=== PATIENT | female | born 1950 | race Caucasian/White ===

== ENCOUNTER 2019-01-21 02:18 | Outpatient (CLI) | payer MEDICARE, BC, SELFPAY ==
[2019-01-21 10:31] LABS: HCT 40.2 % (36.0-46.0); HGB 13.1 g/dL (12.0-15.5); Mean Corp. HGB Concentration 32.6 g/dL (32.0-36.0); Mean Corpuscular Hemoglobin 30.2 pg (27.0-33.0); Mean Corpuscular Volume 92.6 fL (80-95); Mean Platelet Volume 10.1 fL (8.0-11.0); Platelet Count 272 x1000/uL (130-400); RBC 4.34 m/cumm (4.00-5.20); RBC Distribution Width 12.8 % (11.7-14.6)
[2019-01-21 10:45] LABS: ALT 28 U/L (12-78); AST 21 U/L (15-37); Albumin 3.6 g/dL (3.4-5.0); Alkaline Phosphatase 66 U/L (46-116); BUN 20 mg/dL (7-18); Bilirubin, Total 0.4 mg/dL (0.2-1.0); CREATININE 0.81 mg/dL (0.55-1.02); Calcium 8.7 mg/dL (8.5-10.1); Chloride 106 mmol/L (98-107); Glucose 86 mg/dL (70-100); Potassium 4.8 mmol/L (3.5-5.1); Sodium 141 mmol/L (136-145); Total Protein 6.5 g/dL (6.4-8.2)
== END 2019-01-21 02:38 ==
PROVIDERS: PCP Family Medicine; Visit Provider Family Medicine
DX: G47.00 Insomnia, unspecified (principal); K21.0 Gastro-esophageal reflux disease with esophagitis
CPT/HCPCS: 36415; 80053; 85027

== ENCOUNTER → 2020-01-13 08:27 | Outpatient (BNVA) | payer MEDICARE, BC, SELFPAY | PROVIDERS: PCP Family Medicine; Referring Provider Family Medicine; Visit Provider Physical Therapy Assistant | DX: Z12.11 Encounter for screening for malignant neoplasm of colon (principal); Z86.010 Personal history of colon polyps; Z80.0 Family history of malignant neoplasm of digestive organs ==

== ENCOUNTER 2020-02-07 06:15 | Day surgery (SDC) | payer MEDICARE, BC, SELFPAY ==
[2020-02-07 06:13] VITALS: BP 113/72; PULSE 66; RESP 18; TEMP 36.9; O2SAT 95
--- NOTE | 2020-02-07 06:31 | COLE_ITS ---
Date of service: 02/07/20 Time of Service: : Colonoscopy Report Date of procedure: 02/07/20 Pre-op diagnosis general: Hx of polyps and Family history of colon cancer Post-op diagnosis procedure note: same (polyps) Procedure: Colonoscopy with polypectomy Surgeon: Nuvia Ferris Anesthesia proc note operative: other (General/ASA 2/Je Olivarez, SENIOR VALIDATION ENGINEER) Estimated blood loss (mL): 3 Pathology: other (Rectal polyps x5, ascending polyp) Complications: None Disposition: same day Indications: The patient is here for Colonoscopy pre-op. Her last screening was in 2013, which was remarkable for Tubular adenoma's x 2 and a hyperplastic rectal polyp. She reports a family history of colon cancer in her mother at the age of 60. She has not had any bowel habit changes. -Discussed colonoscopy bowel prep as well as the procedure. Discussed possible complications of the procedure to include bleeding, pain, perforation, missed small lesion/polyp, sore throat, aspiration and adverse reaction to the medications. Questions were answered to patient?s satisfaction. No guarantees were implied or given. Prep: Miralax/Dulcolax Procedure Start Time: Procedure End Time: :59 Retraction Time: 18 minutes Findings: 6 small polyps Procedure Description: After informed consent was obtained the patient was taken to the procedure room and placed in a left decubitous position. Monitors were applied and a time out was done. The patients name, date of , procedure, allergies to medications and metal in their body was reviewed. The patient was then sedated. Once sedated and comfortable a rectal exam was done. External exam was normal. Internal exam revealed a normal sphincter tone and no palpable masses. The scope was then introduced and retro-flexed. No internal hemorrhoids, masses or polyps were identified on retro-flexion. The scope was then advanced to the cecum without difficulty. The ileocecal valve and appendiceal orifice were identified. The prep was adequate. The scope was then slowly retracted over 18 minutes back into the rectum. Polyps were removed with cold forceps in the rectum and ascending colon. There were no diverticula. The scope was removed and the patient was woken up and taken back to Same day surgery in stable condition. The patient tolerated the procedure well and there were no immediate complications. Follow up: The patient should follow up in 5 years unless they develop changes in bowel habits or other new gastrointestinal complaints.
--- NOTE | 2020-02-07 06:33 | W.PM.DSUDISC ---
Discharge Plan Disposition Patient Disposition: HOME Condition: Good Discharge Details Reason For Visit: Colonoscopy Attending Provider: Nuvia Ferris Primary Care Provider: Ashkan Carnes Home Meds and New Rx's Prescriptions: Continued baclofen 10 mg tablet 5 - 10 mg PO TID Qty: 30 RF: 0 meloxicam 15 mg tablet 15 mg PO DAILY PRN (Reason: chronic low back pain) Qty: 30 RF: 0 acetaminophen [Tylenol Extra Strength] 500 MG tablet 1 - 2 tab PO DAILY PRN RF: 0 trazodone 50 mg tablet 25 mg PO hs prn Qty: 45 RF: 1 zolpidem 5 mg tablet 5 mg PO QHS PRN (Reason: sleep) Qty: 45 RF: 1 Discharge Instructions Additional Instructions: Findings: 6 small polyps Follow up: 5 years Please call if you develop: fevers >101.5 Nausea or Vomiting Abdominal pain that is not transient DAY SURGERY UNIT POST ENDOSCOPY INSTRUCTIONS 1. Because there will be medication in your system for the next 24 hours, you may feel a little sleepy. Your coordination will be affected. Therefore: a. Do not drive or operate dangerous equipment for 24 hours. b. Do not drink alcohol beverages for 24 hours (not even beer). c. Plan to go home and rest for the day. 2. Generally there are no restrictions on your activity after a day or so has gone by, but you may feel a bit fatigued for a few days. 3 After you arrive home you may have a light meal and return to a normal diet as you can tolerate it without feeling sick to your stomach. 4. After surgery, you may feel pain or discomfort. This should be only transient, but if it persists please contact your doctor. 5. If there are any questions regarding the findings of your procedure, please feel free to contact your doctor. 6. If you are unable to contact your doctor with a problem, contact the hospital at [phone]. 7. Continue all your regular medications unless directed otherwise. I understand the above instructions and have no questions. Signature of Patient or Responsible Adult Escort Date/Time Name of Responsible Adult Escort Signature of Nurse Date/Time Activity:: Activity as Tolerated Diet:: As Tolerated Discharge Orders Discharge Orders: Discharge Order (Routine); Ordered 02/07/20 Ordered By: Nuvia Ferris
[2020-02-07] MEDS: Lactated Ringers 1,000 ML 80 ML IV (06:37)
--- NOTE | 2020-02-07 07:30 | BOWEL_PTH ---
PATIENT: Seda Beltrán LOC: [facility] U#:[id number] AGE/SX: 70/F ROOM: RE02/07/[address]: Nuvia Ferris MD : 1950 BED: DIS: 02/07/2020 SPEC #: [id number] RECD: 02/07/20 12:32 STATUS: SB RE #: [id number] ALTAGRACIA: 02/07/20 07:[address]: Nuvia Ferris DEPT: Surgical Specimen RECD BY: Aria Clancy ENTERED: 02/07/20 12:36 SP TYPE: Bowel OTHR DR: Ashkan Carnes MD Tissues: 1 - BIOPSY BOWEL 2 - BIOPSY BOWEL Procedures: GROSS AND MICRO LEVEL 4 Comments: [id number]
[2020-02-07 09:04] VITALS: BP 120/71; PULSE 63; RESP 16; TEMP 36.2; O2SAT 99
== END 2020-02-07 09:10 | disposition home or self-care (01) ==
PROVIDERS: PCP Family Medicine; Visit Provider Surgery
PROC: 0DJD8ZZ Inspection of Lower Intestinal Tract, Via Natural or Artificial Opening Endoscopic (ICD-10-PCS; CPT 45378; principal; 2020-02-07 07:30)
DX: Z12.11 Encounter for screening for malignant neoplasm of colon (principal); Z86.010 Personal history of colon polyps; Z80.0 Family history of malignant neoplasm of digestive organs; D12.2 Benign neoplasm of ascending colon; K62.1 Rectal polyp
CPT/HCPCS: 45380; 88305; J2001; J2405

== ENCOUNTER 2021-04-11 14:54 | Outpatient (CLI) | payer MEDICARE, BC, SELFPAY ==
--- NOTE | 2021-04-11 14:30 | DI.RAD_ITS ---
Exam(s) XR SHOULDER LT COMPLETE 2+V EXAM: XR SHOULDER LT COMPLETE 2+V CLINICAL HISTORY: pain in shoulder. TECHNIQUE: 2D digital imaging was performed. COMPARISON: No exams were available for comparison FINDINGS: There is no evidence of fracture or dislocation. There are moderate-advanced degenerative changes in the glenohumeral joint. Osteophyte noted on the inferior articular surface of the humeral head. Mo derate degenerative changes are also noted in the ipsilateral acromioclavicular joint. Degenerative subarticular cysts noted in the humeral head IMPRESSION: Degenerative changes. DATA REPOSITORY: RADIATION DOSE DELIVERED:
== END 2021-04-11 14:55 | disposition home or self-care (01) ==
LOC: DIORS 14:54
PROVIDERS: PCP Nurse Practitioner Family; Referring Provider Nurse Practitioner Family; Visit Provider Student in an Organized Health Care Education/Training Program
DX: M25.512 Pain in left shoulder (principal); S49.82XA Other specified injuries of left shoulder and upper arm, initial encounter; T50.Z95A Adverse effect of other vaccines and biological substances, initial encounter; X58.XXXA Exposure to other specified factors, initial encounter
CPT/HCPCS: 20610; 99203; 99214; 73030; J1030

== ENCOUNTER → 2021-05-23 09:43 | Outpatient (BNVA) | payer MEDICARE, BC, SELFPAY | PROVIDERS: PCP Nurse Practitioner Family; Referring Provider Nurse Practitioner Family; Visit Provider Student in an Organized Health Care Education/Training Program | DX: S49.82XD Other specified injuries of left shoulder and upper arm, subsequent encounter (principal); T50.Z95D Adverse effect of other vaccines and biological substances, subsequent encounter; X58.XXXD Exposure to other specified factors, subsequent encounter | CPT/HCPCS: 99212; 99213 ==

== ENCOUNTER 2022-05-20 20:46 | Outpatient (REF) | payer MEDICARE, BC, SELFPAY | END 2022-05-20 20:47 | disposition home or self-care (01) | LOC: LBN 20:46 | PROVIDERS: PCP Nurse Practitioner Family; Visit Provider Nurse Practitioner Family | DX: J02.9 Acute pharyngitis, unspecified (principal) | CPT/HCPCS: 87070 ==

== ENCOUNTER 2023-01-29 02:48 | Outpatient (CLI) | payer MEDICARE, BC, SELFPAY ==
[2023-01-29 08:36] LABS: Calculated LDL 177 mg/dL (<100); Cholesterol 264 mg/dL (<200); Glucose 98 mg/dL (74-106); HDL Cholesterol 70 mg/dL (40-60); Triglyceride 88 mg/dL (<150)
== END 2023-01-29 02:49 | disposition home or self-care (01) ==
LOC: LBO 02:49
PROVIDERS: PCP Nurse Practitioner Family; Visit Provider Nurse Practitioner Family
DX: E78.2 Mixed hyperlipidemia; Z00.00 Encounter for general adult medical examination without abnormal findings
CPT/HCPCS: 36415; 80061; 82947

== ENCOUNTER 2023-05-02 03:07 | Outpatient (CLI) | payer MEDICARE, BC, SELFPAY ==
[2023-05-02 08:30] LABS: ALT 23 U/L (14-59); AST 21 U/L (15-37); Albumin 3.8 g/dL (3.4-5.0); Alkaline Phosphatase 73 U/L (46-116); Anion Gap 6.9 mmol/L (3-11); BUN 18 mg/dL (7-18); Bilirubin, Total 0.4 mg/dL (0.2-1.0); CO2 29.1 mmol/L (21.0-32.0); CREATININE 0.9 mg/dL (0.55-1.02); Calcium 9.6 mg/dL (8.5-10.1); Calculated LDL 141 mg/dL (<100); Chloride 102 mmol/L (98-107); Cholesterol 227 mg/dL (<200); Estimated GFR 67.08 (mL/min/1.73m2); Glucose 95 mg/dL (74-106); HDL Cholesterol 72 mg/dL (40-60); Potassium 4.6 mmol/L (3.5-5.1); Sodium 138 mmol/L (136-145); Total Protein 7.4 g/dL (6.4-8.2); Triglyceride 70 mg/dL (<150)
== END 2023-05-02 03:08 | disposition home or self-care (01) ==
PROVIDERS: PCP Nurse Practitioner Family; Visit Provider Nurse Practitioner Family
DX: E78.2 Mixed hyperlipidemia (principal)
CPT/HCPCS: 36415; 80053; 80061

== ENCOUNTER 2024-01-02 01:18 | Outpatient (CLI) | payer MEDICARE, BC, SELFPAY ==
[2024-01-02 08:44] LABS: ALT 25 U/L (14-59); AST 18 U/L (15-37); Albumin 3.6 g/dL (3.4-5.0); Alkaline Phosphatase 77 U/L (46-116); Anion Gap 9.4 mmol/L (3-11); BUN 19 mg/dL (7-18); Bilirubin, Total 0.52 mg/dL (0.2-1.0); CO2 28.6 mmol/L (21.0-32.0); CREATININE 0.9 mg/dL (0.55-1.02); Calcium 8.7 mg/dL (8.5-10.1); Calculated LDL 114 mg/dL (<100); Chloride 105 mmol/L (98-107); Cholesterol 199 mg/dL (<200); Estimated GFR 67.08 (mL/min/1.73m2); Glucose 97 mg/dL (74-106); HDL Cholesterol 70 mg/dL (40-60); Potassium 3.8 mmol/L (3.5-5.1); Sodium 143 mmol/L (136-145); Triglyceride 76 mg/dL (<150)
== END 2024-01-02 01:19 | disposition home or self-care (01) ==
PROVIDERS: PCP Nurse Practitioner Family; Visit Provider Nurse Practitioner Family
DX: E78.2 Mixed hyperlipidemia (principal)
CPT/HCPCS: 36415; 80053; 80061

== ENCOUNTER 2024-02-04 01:13 | Outpatient (CLI) | payer MEDICARE, BC, SELFPAY ==
--- NOTE | 2024-02-04 07:15 | DI.MAMMO_ITS ---
Exam(s) MAMMO SCREENING EXAM: MAMMO SCREENING CLINICAL HISTORY: screening,z12.39 TECHNIQUE: Bilateral full field digital CC and MLO mammographic images were obtained with 3D tomosyn thesis and utilizing computer aided detection (CAD). COMPARISON: There are no priors for comparison. FINDINGS: Masses/Architectural Distortion: None seen. Microcalcifications: No suspicious pleomorphic-type are seen. Skin Thickening/Nipple Retraction: None. IMPRESSION: 1. No evidence for malignancy is seen at this time. 2. Unless there is more urgent need, screening mammography is recommended, as per [employer] guidelines. BI-RADS Category 1 - Negative Breast Density - Category B - Scattered areas of fibroglandular density Breast density category C or D implies that the patient has dense breast tissue. Dense breast tissue is very common and is not abnormal but dense breast tissue can make it harder to find cancer on a ma mmogram. Also, dense breast tissue may increase their breast cancer risk. This information about the result of the mammogram report was provided to the patient to raise their awareness. Use this report when you speak with the patient about their risks for breast cancer, which includes their family hist ory. At that time, you may recommend for more screening tests (Ultrasound or MRI) as they might be us eful based on their risk. A negative radiographic report should not delay biopsy if a dominant or clinically suspicious mass is present. Up to ten percent of cancers are not identified on mammography. A negative report may reinforce clinical impression. Adenosis and dense breasts may obscure an underlying neoplasm. False positive reports average 6 to 10%. Patient will receive a letter notifying them of these results.
== END 2024-02-04 01:33 ==
LOC: DI 01:13
PROVIDERS: PCP Nurse Practitioner Family; Visit Provider Nurse Practitioner Family
DX: Z12.31 Encounter for screening mammogram for malignant neoplasm of breast (principal)
CPT/HCPCS: 77063; 77067

== ENCOUNTER 2025-01-13 02:39 | Outpatient (CLI) | payer MEDICARE, BC, SELFPAY ==
[2025-01-13 07:58] LABS: ALT 22 U/L (14-59); AST 17 U/L (15-37); Albumin 3.7 g/dL (3.4-5.0); Alkaline Phosphatase 72 U/L (46-116); Anion Gap 3.8 mmol/L (3-11); BUN 25 mg/dL (7-18); Bilirubin, Total 0.4 mg/dL (0.2-1.0); CO2 32.2 mmol/L (21.0-32.0); Calcium 9.1 mg/dL (8.5-10.1); Calculated LDL 128 mg/dL (<100); Chloride 104 mmol/L (98-107); Cholesterol 218 mg/dL (<200); Estimated GFR 66.26 (mL/min/1.73m2); Glucose 94 mg/dL (74-106); HDL Cholesterol 75 mg/dL (>or=50); Potassium 4.4 mmol/L (3.5-5.1); Sodium 140 mmol/L (136-145); Total Protein 7.1 g/dL (6.4-8.2); Triglyceride 77 mg/dL (<150)
== END 2025-01-13 02:40 | disposition home or self-care (01) ==
LOC: LBO 02:39
PROVIDERS: PCP Nurse Practitioner Family; Visit Provider Nurse Practitioner Family
DX: E78.2 Mixed hyperlipidemia (principal)
CPT/HCPCS: 36415; 80053; 80061

== ENCOUNTER → 2025-03-03 10:41 | Outpatient (BNVA) | payer MEDICARE, BC, SELFPAY | PROVIDERS: PCP Nurse Practitioner Family; Referring Provider Nurse Practitioner Family; Visit Provider Physical Therapy Assistant | DX: Z12.11 Encounter for screening for malignant neoplasm of colon (principal); Z86.0101 Personal history of adenomatous and serrated colon polyps | CPT/HCPCS: S0285 ==

== ENCOUNTER 2025-03-16 10:40 | Day surgery (SDC) | payer MEDICARE, BC, SELFPAY ==
[2025-03-16] VITALS (9 sets, daily range): BP systolic 99–125; BP diastolic 57–79; PULSE 68–85; RESP 16–20; TEMP 35.9–36.2; O2SAT 95–99; BMI 26.4
[2025-03-16] MEDS: Lactated Ringers 1,000 ML 80 ML IV (11:21)
--- NOTE | 2025-03-16 12:10 | W.ANESPRE ---
General Info Date of Service Date Performed: 03/16/25 Height: 5 ft 3 in Weight: 67.7 kg Body Mass Index (BMI): 26.4 Surgical Procedure: Operation Date: 03/16/25 13:35 Proposed Procedure Side Surgeon p Colonoscopy Geetha Gonzalez MD Actual Procedure Side Surgeon p Colonoscopy Not Applicable Geetha Gonzalez MD Meds Allergies and Home Medications Allergies Allergy/AdvReac Type Severity Reaction Status Date / Time Sulfa (Sulfonamide Allergy Intermediate RASH Verified 03/16/25 11:01 Antibiotics) doxycycline Allergy Nausea Verified 03/16/25 11:01 codeine AdvReac Intermediate NAUSEA Verified 03/16/25 11:01 meperidine AdvReac Intermediate NAUSEA Verified 03/16/25 11:01 morphine AdvReac Intermediate NAUSEA Verified 03/16/25 11:01 rosuvastatin AdvReac Intermediate Dizziness/L Verified 03/16/25 11:01 ighthead Home Medication ?Medication ?Instructions ?Recorded acetaminophen 500 mg tablet 1 - 2 tab PO DAILY PRN 10/24/12 (Tylenol Extra Strength) pravastatin 40 mg tablet 40 mg PO QHS #90 tabs 09/09/24 zolpidem 5 mg tablet 5 mg PO QHS PRN insomnia #30 tabs 12/03/24 Current Visit Medications: Current Medications Generic Name Dose Route Start Last Admin Trade Name Freq PRN Reason Stop Dose Admin Ringer's Solution 1,000 mls @ 80 mls/hr 03/16/25 06:00 03/16/25 11:21 IV 03/16/25 23:59 80 mls/hr INFUSION WAYLON Administration IV Miscellaneous Supplies 1 each 03/16/25 06:00 Iv Access IV 03/16/25 23:59 DIRECTED WAYLON Sodium Chloride 0 ml 03/16/25 06:00 Normal Saline Flush 10 Ml Syr IV 03/16/25 23:59 PRN PRN Sodium Chloride 0 ml 03/16/25 06:00 Normal Saline 10 Ml Vial IJ 03/16/25 23:59 DIRECTED PRN Sterile Water 0 ml 03/16/25 06:00 Water,Injection,Sterile 10 Ml Vial IJ 03/16/25 23:59 DIRECTED PRN PFSH Active Problems Active Problems: Problem Status Onset Code Bunion of great toe Acute M21.619 Left shoulder pain Acute M25.512 Hyperlipidemia Acute E78.5 Lymphadenopathy of left cervical region Acute 11/10/14 R59.0 Insomnia Acute G47.00 Gastroesophageal reflux disease with esophagitis Acute K21.0 Medical History Medical History Shoulder injury related to vaccine administration (SIRVA) Hyperplastic colon polyp Tubular adenoma of colon PONV (postoperative nausea and vomiting) Abnormal glandular Papanicolaou smear of cervix (05/15/80) Sciatica right back and groin (previously on left) Family hx-breast malignancy sister Surgical History Surgical History H/O colonoscopy History of laparotomy Hx of bilateral cataract extraction 2019 Status post breast biopsy Status post cholecystectomy Open Carpal Tunnel release EXCISION OF MASS 2005 (L) NECK Cholecystectomy Biopsy of breast (~1987) Tobacco Smoking/Tobacco Use Status: Never Passive smoking exposure: No Alcohol Alcohol Intake: current Alcohol intake frequency: holidays/special occasions only Alcohol type: wine Substance Use Substance use: Never Substance use type: does not use Vital Signs and Lab Results Vital Signs Most Recent Vital Signs in EMR: Most Recent Vital Signs Temp Pulse Resp BP Pulse Ox 35.9 C L 78 16 125/79 99 03/16/25 11:03 03/16/25 11:03 03/16/25 11:03 03/16/25 11:03 03/16/25 11:03 Anesthesia Assessment and Plan Anesthesia History Personal History: Other Family History: No Family History of Anesthesia Complications Exercise Tolerance Exercise Tolerance: Metabolic Equivalents>4 Pertinent Negatives Pertinent Negatives: No Major Cardiovascular Symptoms or Complaints and No Major Pulmonary Symptoms or Complaints Cardiac & Pulmonary Exam Cardiac Exam: Normal S1/S2 Heart Sounds Pulmonary Exam: Clear Bilateral Breath Sounds Implantable Cardiac Device Does patient have a Pacemaker or an ICD?: No Airway Exam Known Difficult Airway: No Mallampati Class: 1 Mouth Opening: Normal (> 3cm) Thyromental Distance: Greater than 3 cm Neck Range of Motion: Full ROM Neck Circumference: Normal Teeth Condition: Normal Dentition ASA Classification ASA Score: ASA 2 Emergency Case?: No NPO Status NPO Status: NPO Clears >2 hours, Solids >8 hours Anesthesia Plan Resuscitation Status: Full Code Anesthesia Technique: General Anesthesia (RSI) Airway Planned: Endotracheal Tube Monitors Used: Standard Monitors
--- NOTE | 2025-03-16 12:55 | BOWEL_PTH ---
PATIENT: Seda Beltrán LOC: [facility] U#:[id number] AGE/SX: 75/F ROOM: RE03/16/[address]: Geetha Gonzalez : 1950 BED: DIS: 03/16/2025 SPEC #: [id number] RECD: 03/16/25 17:32 STATUS: SB LANDEROS #: [id number] ALTAGRACIA: 03/16/25 12:[address]: Geetha Gonzalez DEPT: Surgical Specimen RECD BY: Aria Clancy ENTERED: 03/16/25 17:34 SP TYPE: Bowel OTHR DR: Michael Becker DNP Tissues: 1 - BIOPSY BOWEL 2 - STOMACH BIOPSY 3 - STOMACH BIOPSY 4 - ESOPHAGUS BIOPSY 5 - BIOPSY BOWEL Procedures: GROSS AND MICRO LEVEL 4 IMMUNOPEROXIDASE STAIN Comments: [id number]
--- NOTE | 2025-03-16 13:35 | W.PM.ENDDOP ---
Date of service: 03/16/25 Time of Service: 13:35 Endoscopy Report DATE OF PROCEDURE: 03/16/25 PRE-OP DIAGNOSIS: Reflux POST-OP DIAGNOSIS: same PROCEDURE: Upper endoscopy with biopsy. SURGEON: Geetha Gonzalez ANESTHESIA TYPE: General LMA/ETT ESTIMATED BLOOD LOSS: 3 PATHOLOGY: other (Duodenum, Antrum, Gastric Polyp, GE Junction ) COMPLICATIONS: None DISPOSITION: PACU INDICATIONS: Patient is a 75-year-old female who presented today for colonoscopy and endorsed severe reflux symptoms including heartburn and unforceful regurgitation. She notes that she has had long standing symptoms. She denies any history of a prior upper endoscopy. FINDINGS: Upper endoscopy performed without difficulty. There was evidence of a small ulceration in the first portion of the duodenum. There were a few gastric polyps which were removed and sent to pathology. There was also evidence of a small hiatal hernia. Biopsy was performed as well at the GE junction. PROCEDURE DESCRIPTION: After adequate sedation, the upper endoscope was inserted and advanced in the duodenum under direct visualization. The scope was withdrawn and the mucosa inspected. In the first portion of the duodenum there was a small ulceration without evidence of bleeding. A cold forcep biopsy was performed of the duodenum. The stomach was normal with no evidence of ulcerations or erosions. ?The antrum area was biopsied and also checked for H. pylori. A few gastric polyps were present and removed and sent to pathology. Retroflexion view in the stomach showed a small hiatal hernia. At the lower esophagus Z line area, this was inspected and noted to be normal. No evidence of Orr?s esophagus or strictures. A cold forcep biopsy of the GE junction was performed as well. Otherwise, the esophagus was normal. The scope was completely withdrawn from the patient. The patient tolerated the procedure well with no immediate complications.
--- NOTE | 2025-03-16 13:41 | W.COLOREPORT ---
Date of service: 03/16/25 Time of Service: 13:41 Colonoscopy Report Date of procedure: 03/16/25 Pre-op diagnosis general: Personal history of colon polyps, Family history of colon cancer Post-op diagnosis procedure note: same Procedure: Colonoscopy with polypectomy. Surgeon: Geetha Gonzalez Anesthesia Type: General LMA/ETT Estimated blood loss (mL): 2 Pathology: other (Multiple rectal polyps ) Complications: None Disposition: PACU Indications: Patient is a 75-year-old female with history of colon polyps who presents for surveillance colonoscopy. She also has a significant family history for colon cancer. Prep: Miralax/Dulcolax Procedure Start Time: 12:52 Procedure End Time: 13:25 Retraction Time: 10 Findings: Evidence of internal hemorrhoids. Colonoscopy performed without difficulty. Multiple diminutive rectal polyps removed with cold forceps and sent to pathology. Procedure Description: The patient was brought to the endoscopy suite and placed in the left lateral decubitus position. After induction of IV sedation, a digital rectal exam was performed. Digital exam was normal. Retroflexion in the rectum was significant for internal hemorrhoids. The colonoscope was then passed to the cecum without difficulty. Cecal intubation was confirmed by the identification of the appendiceal orifice and the ileocecal valve. Upon withdrawing the colonoscope, all mucosal surfaces were inspected. The prep was noted to be adequate. In the rectum there were multiple diminutive polyps which were removed with cold biopsy forceps. Specimens were retrieved for pathological analysis. There was no other evidence of mucosal abnormality, polyp or cancer. The patient tolerated the procedure well with no complications. Postoperatively, the patient was transferred to the recovery room in stable condition. [place] Bowel Prep [place] Bowel Prep Right Colon: 3 Left Colon: 3 Transverse Colon: 3 Total Score: 9
--- NOTE | 2025-03-16 13:47 | W.ANESPOSTOP ---
Postoperative Evaluation Date, Time and Location Date Performed: 03/16/25 Time Performed: 13:47 Patient Location: PACU Vital Signs Most Recent Imported Vital Signs: Most Recent Vital Signs Temp Pulse Resp BP Pulse Ox 36.2 C L 83 17 99/57 L 95 03/16/25 13:30 03/16/25 13:36 03/16/25 13:36 03/16/25 13:35 03/16/25 13:36 Pain Score Most Recent Pain Score: Most Recent Pain Score Pain Level 0 03/16/25 11:03 Assessment Mental Status: Awake (Alert & Oriented to Patient Baseline) Airway and Respiratory Function: Patent airway with normal (patient baseline) respiratory exam Cardiovascular Function: Hemodynamically Stable Hydration Status: Adequately Hydrated Nausea & Vomiting: No Nausea or Vomiting Pain: Pt. Denies Any Pain Peripheral Nerve Block: Patient did not receive a nerve block
== END 2025-03-16 14:30 | disposition home or self-care (01) ==
PROVIDERS: PCP Nurse Practitioner Family; Visit Provider Student in an Organized Health Care Education/Training Program
PROC: (CPT 43239; principal; 2025-03-16 13:30)
DX: Z12.11 Encounter for screening for malignant neoplasm of colon (principal); K21.9 Gastro-esophageal reflux disease without esophagitis; K44.9 Diaphragmatic hernia without obstruction or gangrene; Z80.0 Family history of malignant neoplasm of digestive organs; K62.1 Rectal polyp; K64.8 Other hemorrhoids; K31.7 Polyp of stomach and duodenum
CPT/HCPCS: 43239; 45380; 88305; 88361; J0330; J2003; J2250; J2405; J2704

== ENCOUNTER → 2025-04-05 08:55 | Outpatient (BNVA) | payer MEDICARE, BC, SELFPAY | PROVIDERS: PCP Nurse Practitioner Family; Referring Provider Nurse Practitioner Family; Visit Provider Student in an Organized Health Care Education/Training Program | DX: K21.00 Gastro-esophageal reflux disease with esophagitis, without bleeding (principal); K63.5 Polyp of colon; R11.0 Nausea | CPT/HCPCS: 99214 ==